=== PATIENT | female | born 2000 | race Two or more races ===

== ENCOUNTER 2025-02-24 12:00 | Inpatient (IN) | payer OTHER ==
[~2025-02-24] VITALS: Ht 160 cm; Wt 81.2 kg
[2025-03-07] VITALS (7 sets, daily range): BP systolic 100–136; BP diastolic 70–83
[2025-03-07] MEDS ORDERED: OXYTOCIN 500 ML IV SCH (07:45)
[2025-03-07] MEDS ORDERED: RINGERS SOLUTION,LACTATED 1,000 ML IV SCH (07:45)
[2025-03-07 08:29] LABS: BASO % 0.4 % (0.1-1.2); EOS # 0.02 (0.04-0.54); EOS % 0.3 % (0.7-7.0); LYMPH # 2.62 (1.18-3.74); LYMPH % 34.7 % (19.3-53.1); MEAN PLATELET VOLUME 12.40 fl (9.4-12.4); MONO # 0.76 (0.24-0.82); MONO % 10.1 % (4.7-12.5); NEUT # 4.07 (1.56-6.13); NEUT % 54.0 % (34.0-71.1); RED CELL DISTRIBUTION WIDTH 11.9 % (11.6-14.4)
[2025-03-07 08:30] LABS: URINE APPEARANCE Clear; URINE BACTERIA 915.3 uL (0.0-1933); URINE BILIRRUBIN Negative (NEGATIVE); URINE BLOOD Negative; URINE COLOR Yellow; URINE EPITHELIAL CELLS 91.8 uL (0.0-38.8); URINE GLUCOSE Negative (NEGATIVE); URINE KETONE Negative (NEGATIVE); URINE LEUKOCYTE Trace; URINE NITRATE Negative; URINE PROTEIN Negative (NEGATIVE); URINE RBC 7.9 uL (0.0-20.8); URINE UROBILINOGEN 0.2 E.U./dl; URINE WBC 18.6 uL (0.0-23.2)
[2025-03-07 08:34] LABS: URINE CAST 0.00 uL (0.0-1.40)
[2025-03-07] MEDS ORDERED: PRENATAL CAPLE1 EAC1 PO (08:52)
[2025-03-07 09:25] LABS: INR 0.96
[2025-03-07 09:29] LABS: ALT/SGPT 17.0 U/L (12-78); AST/SGOT 17.0 U/L (15-37); BILIRUBIN TOTAL 0.61 mg/dL (0.3-1.2); BUN CREA RATIO 19.0 (7.0-25.0); CREATININE SERUM 0.64 mg/dL (0.55-1.02); GFR 113.06; GLOBULINA 3.5 G/DL (2.4-3.5); GLUCOSE FASTING 80.0 mg/dL (65-100); OSMOLALITY SERUM 276.0 MOSM/KG (275-295)
[2025-03-07] MEDS ORDERED: MORPHINE SULFATE 4 MG/ML VIAL IV ONE (15:00)
[2025-03-07] MEDS ORDERED: ERYTHROMYCIN BASE OPHT 1GM EACH TUBE OP ONE (20:45)
[2025-03-07] MEDS ORDERED: LIDOCAINE HCL 1% 2ML VIAL IJ ONE (20:45)
[2025-03-07] MEDS ORDERED: ACETAMINOPHEN 500 MG GEL..CAP PO PRN (20:45)
[2025-03-07] MEDS ORDERED: CHLORHEXIDINE GLUCONATE 120 ML BOTTLE TOP ONE (21:45)
[2025-03-07] MEDS ORDERED: OXYTOCIN 1,000 ML IV SCH (21:45)
[2025-03-08] VITALS: BP 121/75
[2025-03-08 02:19] LABS: BASO % 0.2 % (0.1-1.2); EOS # 0.00 (0.04-0.54); EOS % 0.0 % (0.7-7.0); LYMPH # 1.49 (1.18-3.74); LYMPH % 8.4 % (19.3-53.1); MEAN PLATELET VOLUME 12.50 fl (9.4-12.4); MONO # 1.43 (0.24-0.82); MONO % 8.1 % (4.7-12.5); NEUT # 14.66 (1.56-6.13); NEUT % 82.7 % (34.0-71.1); RED CELL DISTRIBUTION WIDTH 11.9 % (11.6-14.4)
[2025-03-08 08:21] VITALS: BP 114/77
[2025-03-08] MEDS ORDERED: BENZOCAINE/MENTHOL 90 ML BOTTLE TOP SCH (09:00)
[2025-03-08] MEDS ORDERED: HYDROCORTISONE 2.5% 30 GM TUBE RECTAL SCH (09:00)
[2025-03-08] MEDS ORDERED: MINERAL OIL 30 ML BLIST.PACK PO ONE (11:30)
[2025-03-08] MEDS ORDERED: MINERAL OIL 30 ML BLIST.PACK PO NR (11:30)
[2025-03-08] MEDS ORDERED: MAGNESIUM HYDROXIDE 30 ML BLIST.PACK PO NR (12:00)
[2025-03-08 16:00] VITALS: BP 126/82
[2025-03-09] VITALS: BP 107/65
[2025-03-09 09:37] VITALS: BP 111/70
== END 2025-03-09 11:31 | disposition home or self-care (01) | DRG 807 ==
LOC: OB/GYN 03-07 07:13 → LDR 03-07 07:13 → OB/GYN 03-07 16:00 → SURH 03-08 12:00 → OB/GYN 03-09 11:31
PROVIDERS: ADMIT Specialist; ATTEND Specialist
PROC: 10E0XZZ Delivery of Products of Conception, External Approach (ICD-10-PCS; principal; 2025-03-07)
PROC: 0W8NXZZ Division of Female Perineum, External Approach (ICD-10-PCS; 2025-03-07)
PROC: 4A1HXCZ Monitoring of Products of Conception, Cardiac Rate, External Approach (ICD-10-PCS; 2025-03-07)
PROC: 3E033VJ Introduction of Other Hormone into Peripheral Vein, Percutaneous Approach (ICD-10-PCS; 2025-03-07)
DX: O80 Encounter for full-term uncomplicated delivery (principal); Z37.0 Single live birth; Z3A.39 39 weeks gestation of pregnancy